=== PATIENT | female | born 1980 | race Caucasian/White ===

== ENCOUNTER 2023-03-24 19:56 | Emergency (ER) | payer OTHER, SELFPAY ==
[2023-03-24 19:58] VITALS: BP 158/97; PULSE 99; RESP 18; TEMP 36.6; O2SAT 98; BMI 36.5
--- NOTE | 2023-03-24 20:17 | US_ITS ---
INDICATION: vaginal bleeding EXAMINATION: Ultrasound US OB Transvaginal TECHNIQUE: Transvaginal pelvic ultrasound was performed. Grayscale, spectral waveform, and color flow Doppler evaluation of the adnexa. COMPARISON: LMP: 01/30/2023. FINDINGS: Uterus 11.1 cm length. Normal configuration. There is a 1.1 x 0.6 x 1.1 cm fibroid posterior uterus. Small cystic structure in the endometrial canal likely gestational sac. Uniform sac shape. Mean diameter 1.13 cm corresponds to estimated gestational age 5 weeks 6 days. No pole identified within this structure. No yolk sac identified. The left ovary appears unremarkable 1.7 x 1.3 x 1.3 cm cyst. Vascular flow is demonstrated in the left ovary. The right ovary was not visualized. No adnexal mass identified. Small amount of free fluid in the pelvis. US/Transvaginal w/Preg US IMPRESSION: Small cystic structure in the uterus probably early gestational sac corresponding to estimated gestational age 5 weeks 6 days. However, no pole or yolk sac identified within this structure to confirm intrauterine . Differential diagnosis includes early intrauterine , missed , and ectopic . Ectopic is not excluded. Correlate with serial hCG levels and follow up with ultrasound as needed. Nonvisualized right ovary. Small uterine fibroid. Electronically Signed: Maylin Arenas MD at 22:13 EDT ,
--- NOTE | 2023-03-24 20:18 | ED.VIS.FEGU ---
HPI <KWAME Tolentino - Last Filed: 03/25/23 11:03> HPI - Female History of Present Illness Chief Complaint: Vag Bleeding Narrative Narrative: Patient is a 43-year-old female who is a 16 para 10 with 1 stillborn, 5 spontaneous abortions who presents to the emergency department with complaints of vaginal bleeding. Patient states that her last menstrual cycle was January 30, 2023, she is trying to get . She has taken a couple buggy rides in the last 2 weeks with intermittent pain to her abdomen. Patient started having bleeding multiple hours ago today. She is concerned that she might have a tubal, ectopic or spontaneous . She is also concerned that she might have a UTI. Patient denies any fever or chills, patient denies any dizziness, chest pain, shortness of breath. [facility] <KWAME Tolentino - Last Filed: 03/25/23 11:03> [facility] Medical History (Updated 03/24/23 @ 23:[address] Waylon Page, DO) Acid reflux Home Medications nitrofurantoin monohydrate/macrocrystals 100 mg capsule (Macrobid) 100 mg PO BID 03/24/23 [History Last Taken 03/24/23] Allergy/AdvReac Type Severity Reaction Status Date / Time No Known Allergies Allergy Verified 03/24/23 20:00 Social History Smoking Status: Never smoker ROS <KWAME Tolentino - Last Filed: 03/25/23 11:03> ROS ED ROS Narrative Constitutional: Negative for fever, chills, weight loss, weakness Eyes: Negative for vision loss, vision change, double vision ENT: Negative for any sore throat, ear pain, congestion Cardiovascular: Negative for any chest pain, tightness, palpitations Respiratory: Negative for any cough, sputum production, hemoptysis, dyspnea, dyspnea on exertion, orthopnea Gastrointestinal: Negative for any abdominal pain, nausea, vomiting, diarrhea, constipation, blood in stool, blood in vomit : Negative for any urinary retention, blood in urine. Positive for vaginal bleeding, dysuria, frequency Muscle skeletal: Negative for any muscle joint pain, stiffness, myalgias, arthralgias, neck pain, back pain Neurological: Negative for any headache, syncope, numbness or tingling, dizziness Skin: Negative for any rashes, lumps, itching, abrasions, lacerations Psychiatric: Negative for any depression, anxiety, stress, suicidal ideation, homicidal ideation Hematologic: Negative for any easy bruising, excessive bruising, easy bleeding Allergies: Negative for any eczema, hives, rash EXAM <Emory ElizabethKWAME maradiaga - Last Filed: 03/25/23 11:03> Physical Exam Narrative Exam Narrative: Vital signs reviewed. Patient appears generally well, patient appears nontoxic, vital signs are stable. HEET: Head normocephalic atraumatic, TMs clear bilaterally. Posterior pharynx is clear, moist mucous membranes. Nares clear bilaterally. Neck: Supple with no lymphadenopathy or tenderness. No signs of meningismus, negative jolt sign. Cardiac: Regular rate and rhythm no murmurs gallops or rubs, equal peripheral pulses bilaterally. Respiratory: Lungs clear to auscultation bilaterally. No chest tenderness. Abdomen: Soft, nontender, nondistended. No abdominal bruit or pulsatile masses. No hepatosplenomegaly Extremities: No peripheral edema, no signs of gross trauma or deformity. Active full range of motion of all extremities. Neuro: Cranial nerves II through XII intact, no focal neurological deficits. Skin: Clean dry and intact with no rash, purpura, petechiae, vesicles or pustules. Backs/flank: No CVA tenderness, no midline spinal tenderness, no deformity. Psych: Normal mood and affect. No SI, HI or acute psychosis. Const Vital Signs: 03/24/23 19:58 03/24/23 22:15 03/24/23 23:02 Temperature 97.9 F 98.1 F Temperature Source Temporal Pulse Rate 99 99 88 Respiratory Rate 18 16 16 Blood Pressure 158/97 H 142/71 H 135/70 H Blood Pressure Mean 117 94 Pulse Ox 98 99 Oxygen Delivery Method Room Air Room Air Positive well nourished and well developed General Appearance ED: well developed <Dr. Waylon Page DO - Last Filed: 03/24/23 23:02> Physical Exam Const Vital Signs: 03/24/23 19:58 03/24/23 22:15 03/24/23 23:02 Temperature 97.9 F 98.1 F Temperature Source Temporal Pulse Rate 99 99 88 Respiratory Rate 18 16 16 Blood Pressure 158/97 H 142/71 H 135/70 H Blood Pressure Mean 117 94 Pulse Ox 98 99 Oxygen Delivery Method Room Air Room Air [facility] <Emory Salcedo KWAME - Last Filed: 03/25/23 11:03> [facility] Lab Data Labs: Laboratory Results - last 24 hr 03/24/23 03/24/23 20:00 20:25 WBC 11.7 H RBC 4.60 Hgb 13.7 Hct 40.6 MCV 88.3 MCH 29.8 MCHC 33.7 RDW Std Deviation 41.9 RDW Coeff of Stacy 13.1 Plt Count 232 MPV 9.8 Immature Gran % (Auto) 0.500 Neut % (Auto) 84.6 H Lymph % (Auto) 10.6 L [place] % (Auto) 4.0 Eos % (Auto) 0.1 Baso % (Auto) 0.2 Absolute Neuts (auto) 9.9 H Absolute Lymphs (auto) 1.24 Nucleated RBC % 0 HCG, Quant 1561 H Urine Color Yellow Urine Clarity Sl. Cloudy Urine pH 5.0 Ur Specific [place] 1.020 Urine Protein 15 H Urine Glucose (UA) Normal Urine Ketones 50 H Urine Occult Blood 250 H Urine Nitrite Negative Urine Bilirubin Negative Urine Urobilinogen Normal Ur Leukocyte Esterase 100 H Urine RBC 50-100 SEEN Urine WBC 5-10 SEEN Ur Squamous Epith Cells 0-5 SEEN Urine Bacteria 0 SEEN Urine Mucus 0 SEEN Urine Test Positive H Blood Type A NEGATIVE Antibody Screen NEGATIVE Radiography Diagnostic Testing: Clinical Impression(s) from Imaging Studies Obstetrics Ultrasound 03/24/23 20:17 IMPRESSION: Small cystic structure in the uterus probably early gestational sac corresponding to estimated gestational age 5 weeks 6 days. However, no pole or yolk sac identified within this structure to confirm intrauterine . Differential diagnosis includes early intrauterine , missed , and ectopic . Ectopic is not excluded. Correlate with serial hCG levels and follow up with ultrasound as needed. Nonvisualized right ovary. Small uterine fibroid. Electronically Signed: Maylin Arenas MD at 22:13 EDT , Treatment and Re-Evaluation Narrative: Patient appears well, patient appears nontoxic, vital signs are stable. Patient presents to the emergency department with complaints of vaginal bleeding concern for . Patient states she did see a doctor in [place] who did confirm that she was . However I will obtain a urinalysis as well as urine Prag, the urine Prag is secondary to come back to ensure that the patient is to obtain a transvaginal ultrasound for . Patient will also see if a CBC, urine hCG quantitative. If the patient is , the patient will need to receive the RhoGAM injection secondary to her having it multiple times. Patient looks generally well and is in no distress. <Dr. Waylon Page, DO - Last Filed: 03/24/23 23:02> [facility] Narrative Medical decision making narrative: I have personally performed a face to face assessment of the patient and have reviewed the EMERSON Note. I performed a substantive portion of the visit including all aspects of the following. My forman findings include: History: Patient presents with vaginal bleeding and possible miscarriage that began today. Patient states she is and thinks she has almost 2 months . Patient denies any abdominal pain. Patient denies any fevers or chills. Patient denies any urinary complaints. Patient states she is passing some clots but is not passing any tissue. Patient is Rh-. Patient was prescribed Macrobid by her MAMMA LOGIST for urinary tract infection. Exam: Vital signs are stable. Patient is afebrile. Patient is in no acute distress. Oral mucosa is pink and moist. Neck is supple. Trachea is midline. There is no JVD. Heart was regular rate and rhythm. Lungs are clear and equal bilaterally. Abdomen is soft. Bowel sounds are normal. There is no tenderness. Cranial nerves II through XII are intact. There are no focal motor or sensory deficits noted. Medical Decision Making: Differential diagnosis includes threatened miscarriage, spontaneous miscarriage, ectopic , and dysfunctional uterine bleeding. Urine hCG will be obtained to assess for . Quantitative hCG will be obtained to assess for duration of . CBC will be obtained to assess for leukocytosis and anemia. Urinalysis will be obtained to assess for urinary tract infection and hematuria. Type and Rh will be obtained to assess for type and Rh status. CBC was reviewed. There is a mild leukocytosis of 11.7. The remainder is within normal limits. Urine hCG was reviewed and was positive. Quantitative hCG was reviewed and was 1561. Urinalysis was reviewed. Leukocyte Estrace was 100. Occult blood was 250. There were 50-100 red blood cells and 5-10 white blood cells. There were no bacteria noted. Blood type was A-. Patient was given RhoGAM here. Pelvic ultrasound was obtained. There is a mall cystic structure in the uterus. There is no pole or yolk sac noted. This was interpreted by the radiologist and was also independently reviewed by myself. Patient was advised of her findings. Patient was instructed to follow-up with her MAMMA LOGIST in 2 to 3 days. Patient was instructed return if worse in any way. Patient understood and was agreeable with plan. All questions were answered. Lab Data Labs: Laboratory Results - last 24 hr 03/24/23 03/24/23 20:00 20:25 WBC 11.7 H RBC 4.60 Hgb 13.7 Hct 40.6 MCV 88.3 MCH 29.8 MCHC 33.7 RDW Std Deviation 41.9 RDW Coeff of Stacy 13.1 Plt Count 232 MPV 9.8 Immature Gran % (Auto) 0.500 Neut % (Auto) 84.6 H Lymph % (Auto) 10.6 L [place] % (Auto) 4.0 Eos % (Auto) 0.1 Baso % (Auto) 0.2 Absolute Neuts (auto) 9.9 H Absolute Lymphs (auto) 1.24 Nucleated RBC % 0 HCG, Quant 1561 H Urine Color Yellow Urine Clarity Sl. Cloudy Urine pH 5.0 Ur Specific [place] 1.020 Urine Protein 15 H Urine Glucose (UA) Normal Urine Ketones 50 H Urine Occult Blood 250 H Urine Nitrite Negative Urine Bilirubin Negative Urine Urobilinogen Normal Ur Leukocyte Esterase 100 H Urine RBC 50-100 SEEN Urine WBC 5-10 SEEN Ur Squamous Epith Cells 0-5 SEEN Urine Bacteria 0 SEEN Urine Mucus 0 SEEN Urine Test Positive H Blood Type A NEGATIVE Antibody Screen NEGATIVE Radiography Diagnostic Testing: Clinical Impression(s) from Imaging Studies Obstetrics Ultrasound 03/24/23 20:17 IMPRESSION: Small cystic structure in the uterus probably early gestational sac corresponding to estimated gestational age 5 weeks 6 days. However, no pole or yolk sac identified within this structure to confirm intrauterine . Differential diagnosis includes early intrauterine , missed , and ectopic . Ectopic is not excluded. Correlate with serial hCG levels and follow up with ultrasound as needed. Nonvisualized right ovary. Small uterine fibroid. Electronically Signed: Maylin Arenas MD at 22:13 EDT , Discharge Plan Triage Chief Complaint: Vag Bleeding ED Midlevel Provider: Emory Salcedo ED Provider: Waylon Page Dx/Rx/DC Orders Clinical Impression: Miscarriage, threatened, early Instructions: ED Possible Miscarriage ... Prescriptions: No Action nitrofurantoin monohyd/m-cryst [Macrobid] 100 mg capsule 100 mg PO BID Rx Instructions: must administer with a meal/food Primary Care Provider: Wayne Melo Referrals: Wayne Melo PA-C [Primary Care Provider] - 2 Days NOT,DEFINED [Non-Staff] - Disposition Disposition: Home, Self Care Discharge Date/Time: 03/24/23 23:31
[2023-03-24 20:29] LABS: Bacteria 0 SEEN /hpf (None Seen); Mucous, Urine 0 SEEN /hpf (<or=2+)
[2023-03-24 20:32] LABS: Absolute Lymphocyte Count 1.24 X10^3/uL (0.83-4.51); Absolute Neutrophil Count 9.9 X10^3/uL (2.0-7.7); Basophil# 0.02 X10^3/uL; Basophil% 0.2 % (0-1); Eosinophil# 0.01 X10^3/uL; Eosinophils% 0.1 % (0-5); Hematocrit 40.6 % (37-47); Hemoglobin 13.7 g/dL (12.0-15.0); Lymphocyte # 1.24 X10^3/ul (0.83-4.51); Lymphocyte % 10.6 % (19-41); Mean Corp Hgb Conc 33.7 g/dL (32-36); Mean Corpuscular Hgb 29.8 pg (27.0-32.0); Mean Corpuscular Volume 88.3 fL (81-99); Mean Platelet Vol. 9.8 fl (6.2-12.0); Monocyte# 0.47 X10^3/uL; NRBC Flagged by Analyzer 0 % (0-5); Neutrophil # 9.85 X10^3/uL (2.7-7.7); Neutrophil % 84.6 % (47-70); Platelet Count 232 K/mm3 (150-450); RBC Distribution Width CV 13.1 % (11.6-14.6); RBC Distribution Width SD 41.9 fl (35.1-43.9); White Blood Count 11.7 K/mm3 (4.4-11.0)
[2023-03-24 20:39] LABS: Color, Urine Yellow (Yellow); Glucose, Dipstick Normal (Normal); Ketone-Dipstick 50 mg/dl (Negative); Leukocyte Esterase-Dipstick 100 /ul (Negative); Nitrite-Dipstick Negative (Negative); Occult Blood-Urine 250 /ul (Negative); Protein-Dipstick 15 mg/dl (Negative); Urine Bilirubin Dipstick Negative (Negative); Urine Clarity Sl. Cloudy (Clear); Urine Urobilinogen Normal (Normal)
[2023-03-24 20:46] LABS: White Blood Cells 5-10 SEEN /hpf (0-5)
[2023-03-24 20:47] LABS: Red Blood Cells-Urine 50-100 SEEN /hpf (0-5); Squamous Epithelial Cells - UA 0-5 SEEN /hpf (5-10)
[2023-03-24 20:52] LABS: Internal QC Validated? YES +Cl - CLEAR BKGD
[2023-03-24 20:53] LABS: Pregnancy, Urine Positive Negative
[2023-03-24 21:22] LABS: hCG Titer Quant., Serum 1561 mIU/mL (1-3)
[2023-03-24 22:15] VITALS: BP 142/71; PULSE 99; RESP 16; O2SAT 99
[2023-03-24 23:02] VITALS: BP 135/70; PULSE 88; RESP 16; TEMP 36.7
== END 2023-03-24 23:31 | disposition home or self-care (01) ==
PROVIDERS: Nurse Practitioner; Emergency Provider Emergency Medicine; PCP Physician Assistant; Visit Provider Emergency Medicine
DX: O20.0 Threatened abortion (principal); O09.529 Supervision of elderly multigravida, unspecified trimester; Z3A.00 Weeks of gestation of pregnancy not specified
CPT/HCPCS: 76817; 81001; 81025; 84702; 85025; 86850; 86900; 86901; 87086; 87088; 96372; 99282; A4216; J2790